=== PATIENT | male | born 1960 | race Caucasian/White ===

== ENCOUNTER 2022-09-19 12:42 | Emergency (ER) | payer BC ==
[~2022-09-19] VITALS: Ht 170.2 cm; Wt 72.6 kg
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
[2022-09-19] MEDS ORDERED: TDAP [DIPH/PERTUSSIS/TET] 0.5 ML VIAL IM ONE ×2 (13:54→14:00)
--- NOTE | 2022-09-19 14:10 | NUR ---
URINE COLLECTED AND SENT TO LAB.
[2022-09-19 15:14] VITALS: BP 100/58
--- NOTE | 2022-09-19 15:28 | NUR ---
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
== END 2022-09-19 15:39 | disposition home or self-care (01) ==
LOC: ER 12:51
DX: S13.4XXA Sprain of ligaments of cervical spine, initial encounter (principal); S00.81XA Abrasion of other part of head, initial encounter; F10.129 Alcohol abuse with intoxication, unspecified; I10 Essential (primary) hypertension; F20.9 Schizophrenia, unspecified; V89.2XXA Person injured in unspecified motor-vehicle accident, traffic, initial encounter; Y93.89 Activity, other specified; Y92.411 Interstate highway as the place of occurrence of the external cause; Y99.8 Other external cause status; Y90.9 Presence of alcohol in blood, level not specified
CPT/HCPCS: 70450-TC; 72125-TC; 90715